=== PATIENT | female | born 1990 | race Two or more races ===

== ENCOUNTER 2023-05-13 20:57 | Emergency (ER) | payer MEDICAID ==
[~2023-05-13] VITALS: Ht 170.2 cm; Wt 54.4 kg
[2023-05-13] MEDS ORDERED: IBUPROFEN 600 MG TABLET PO ONE (22:15)
[2023-05-13] MEDS ORDERED: IBUPROFEN 600 MG TABLET ONE (22:18)
[2023-05-13 22:31] LABS: *URINE HCG, QUAL NEGATIVE (NEGATIVE)
[2023-05-13] MEDS ORDERED: IBUP-1490 PO (23:05)
[2023-05-13 23:22] VITALS: BP 119/68; O2SAT 97
== END 2023-05-13 23:15 | disposition home or self-care (01) ==
LOC: ER 21:02
DX: R51.9 Headache, unspecified (principal); J45.909 Unspecified asthma, uncomplicated; R10.2 Pelvic and perineal pain; Z88.5 Allergy status to narcotic agent
CPT/HCPCS: 76856; 84703; A4606; A4663